=== PATIENT | female | born 1975 | race American Indian/Alaskan Native ===

== ENCOUNTER 2017-01-13 11:32 | Emergency (ER) | payer OTHER ==
[2017-01-13] MEDS ORDERED: MOTRIN PO ONE (16:27)
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
[2017-01-13 18:40] VITALS: BP 157/91
--- NOTE | 2017-01-13 20:08 | Cat Scan Report ---
FINAL REPORT EXAM: CT THORACIC SPINE WO CON HISTORY: spinal tenderness TECHNIQUE: Two views thoracic spine PRIORS: None. FINDINGS: The vertebral bodies demonstrate normal height and alignment. The disk spaces are within normal limits. There is spondylosis with anterior vertebral body osteophytes through the mid thoracic spine. The posterior elements appear intact. Perivertebral soft tissues are unremarkable. IMPRESSION: Spondylosis at the mid thoracic spine with anterior vertebral body osteophytes No acute traumatic abnormality identified.
--- NOTE | 2017-01-13 20:14 | Cat Scan Report ---
FINAL REPORT EXAM: CT LUMBAR SPINE WO CON HISTORY: spinal tenderness TECHNIQUE: CT lumbar spine with multiplanar reconstructions PRIORS: None. FINDINGS: Vertebral bodies demonstrate normal height and alignment. The disc spaces are within normal limits. There is no evidence of spondylolisthesis. Transverse and spinous processes are intact SI joints are unremarkable. IMPRESSION: Study within normal limits. No acute abnormality identified
== END 2017-01-13 20:35 | disposition home or self-care (01) ==
LOC: ED 11:32
DX: S39.012A Strain of muscle, fascia and tendon of lower back, initial encounter (principal); S13.4XXA Sprain of ligaments of cervical spine, initial encounter; I10 Essential (primary) hypertension; V49.49XA Driver injured in collision with other motor vehicles in traffic accident, initial encounter; Y93.89 Activity, other specified; Y92.89 Other specified places as the place of occurrence of the external cause; Y99.8 Other external cause status
CPT/HCPCS: 72072; 72100; 72128; 72131